=== PATIENT | female | born 1980 | race Caucasian/White ===

== ENCOUNTER 2025-06-26 23:43 | Inpatient (IN) | payer OTHER, SELFPAY ==
[2025-06-26] VITALS (7 sets, daily range): BP systolic 116–153; BP diastolic 67–86; BMI 21.1
[2025-06-26] MEDS: ZOFRAN 4 MG IV (16:20)
[2025-06-26] MEDS: BENTYL 20 MG IM ×2 (16:20→22:51)
[2025-06-26] MEDS: NSS 1000 IV ×2 (16:24→18:12)
[2025-06-26 16:37] LABS: Hematocrit 39.5 % (37.0-47.0); Hemoglobin 14.0 g/dL (12.0-16.0); Mean Corp Hgb Conc. 35.4 g/dL (33.0-37.0); Mean Corpuscular Volume 88.4 fL (81.0-99.0); Nucleated Red Blood Cells % 0 %; Platelet Count 237 10^3/uL (130-400); Red Cell Dist. Width 12.2 % (11.5-14.5)
[2025-06-26 16:54] LABS: Albumin 5.1 g/dl (3.5-5.0); Alkaline Phosphatase 40 U/L (38-126); Blood Urea Nitrogen 16 mg/dl (7-17); Calcium 10.1 mg/dl (8.4-10.2); Carbon Dioxide 12 mmol/L (22-30); Chloride 102 mmol/L (98-107); Glucose 148 mg/dl (70-99); Potassium 4.3 mmol/L (3.5-5.1); Sodium 135 mmol/L (135-145); Total Protein 8.2 g/dl (6.3-8.2); eGFR > 60.00
[2025-06-26 17:01] LABS: AST (SGOT) 42 U/L (14-36)
[2025-06-26 17:16] LABS: COVID-19 Antigen Negative (Negative)
[2025-06-26 17:18] LABS: ALT (SGPT) 56 U/L (0-35)
--- NOTE | 2025-06-26 17:21 | ED.GENMED ---
History of Present Illness
<ALYSSA Yousif - Last Filed: 06/29/25 18:33>
General
Chief Complaint: Abdominal Pain
Source: patient
Exam Limitations: none
Time Seen by Provider: 06/26/25 15:51
Nursing documentation reviewed up to this point in time: agreed with
History of Present Illness
History of Present Illness:
Patient is a 44-year-old female past medical history of IBS cyclical vomiting on medical marijuana(vapes daily) presents to the ER for evaluation of nausea and vomiting diarrhea. Patient started symptoms today. She does report however this is the
third episode she has had. Previously she was hospitalized at another institution. She does report her son had the stomach bug recently.
]
Phy Exam
<ALYSSA Yousif - Last Filed: 06/29/25 18:33>
General Physical Exam
General Presentation: no apparent distress
General age: appears stated age
General Skin: warm and dry
General Habitus: normal
General Mental: alert
General Hydration: dry mucous membranes
Cardiovascular Exam
Cardiovascular Exam: regular rate/rhythm, no murmur and normal peripheral pulses
Pulmonary Exam
Pulmonary Exam: lungs clear and no respiratory distress
Gastrointestinal Exam
Gastrointestinal Exam: soft and other (non specific tenderness no guarding )
Neurological Exam
Neurological Exam: alert and oriented x3
Musculoskeletal Exam
Musculoskeletal Exam: full ROM
Skin Exam
Skin Exam: normal color and warm/dry
Psychiatric Exam
Psychiatric Exam: normal mood/affect
Course
<ALYSSA Yousif - Last Filed: 06/29/25 18:33>
Orders/Labs/Results
Orders:
Orders
06/26/25 16:06
IV Insert/Care/Rem.- Treatment PRN
0.9% Sodium Chloride 1000 ml [Nss] 1,000 ml IV BOLUS
Ondansetron Injectable [Zofran] 4 mg IV NOW STA
06/26/25 16:08
Dicyclomine HCl [Bentyl] 20 mg IM NOW STA
06/26/25 16:26
Complete Blood Count/With Diff Urgent
Comprehensive Metabolic Panel Urgent
06/26/25 16:54
COVID-19 Antigen Urgent
Source: Nasal Swab
Influenza A+B Rapid Molecular Urgent
DONOVAN Source: Nasal Swab
Specimen Description:
06/26/25 17:28
Vital Signs- Treatment ONCE
Frequency: Once
06/26/25 17:29
Diphenhydramine [Benadryl] 25 mg IV NOW STA
06/26/25 17:30
0.9% Sodium Chloride 1000 ml [Nss] 1,000 ml IV BOLUS
06/26/25 17:32
Metoclopramide [Reglan] 10 mg .ROUTE .STK-MED ONE
06/26/25 17:34
Metoclopramide [Reglan] 10 mg IV NOW STA
06/26/25 19:44
Basic Metabolic Panel Urgent
06/26/25 21:02
Ketorolac [Toradol] 15 mg IV NOW STA
06/26/25 22:30
Dicyclomine HCl [Bentyl] 20 mg IM NOW STA
06/26/25 23:12
Admit/Transfer Patient As Directed
Co-Sign Provider:
Level of Care: Inpatient admission
Assign to:: Medical/Surgical
Physician / Group: mary
Diagnosis: gastroenteritis
Reason for Hospitalization: gastroenteritis
Expected length of stay greater than two midnights?: Yes
ELOS- Estimated Length of Stay in days: 2
I certify the patient meets the requirements for IP care: Yes
Code Status As Directed
Resuscitation Status: Full Code
PRN Pain Medication Management As Directed
May give lesser potent ordered pain med per pt: Yes
preference::
Protocol:: Medication orders for pain may be administered in a
manner that supports deferring to patient preference
when the pt is:
- Requesting an ordered lesser potent pain medication.
Least to most potent pain medications are defined
as: acetaminophen < NSAID < tramadol < opioids
(morphine, oxycodone, hydromorphone).
- Requesting a lesser dose of the same medication IF
ORDERED.
- Requesting a less intrusive route of administration
if both routes are prescribed by the provider (PO <
IV).
06/26/25 23:13
Calcium Gluconate 1 gram/100mL [Calcium Gluconate] 1 gram in 100 ml IV ONCE
06/26/25 23:14
Norovirus by PCR Urgent
DONOVAN Source: Feces/Stool
Specimen Description:
Date Specimen was Collected: 06/27/25
Time Specimen was Collected: 12:32
Stool Culture Urgent
DONOVAN Source: Feces/Stool
Specimen Description:
Date Specimen was Collected: 06/27/25
Time Specimen was Collected: 12:32
06/26/25 23:20
Sodium Bicarbonate 50 meq IV NOW STA
06/27/25 01:14
0.9% Sodium Chloride 1000 ml [Nss] 1,000 ml IV 100 mls/hr
Acetaminophen [Tylenol] 650 mg PO Q4HPRN PRN
Dicyclomine [Bentyl] 10 mg PO QIDPRN PRN
HYDROmorphone [Dilaudid] 0.5 mg IV Q4HPRN PRN
Metoclopramide [Reglan] 10 mg IV Q6HPRN PRN
Ondansetron Injectable [Zofran] 4 mg IV Q6HPRN PRN
06/27/25 01:14
Activity As Directed
Activity Level: As Tolerated
Vital Signs As Directed
Frequency: Per unit guidelines
DX Deep Vein Thrombosis Video Routine
06/27/25 08:00
Heparin 5,000 units SC Q12
06/27/25 09:14
Complete Blood Count/With Diff IN AM
Comprehensive Metabolic Panel IN AM
Abnormal Lab Results
06/26/25 06/26/25
16:26 19:44
WBC 15.9 H 10^3/uL
(4.8-10.8)
MCH 31.3 H pg
(27.0-31.0)
MPV 11.3 H fL
(7.4-10.4)
Abs Immat Gran (auto) 0.1 H 10^3/uL
(0-0.05)
Absolute Neuts (auto) 15.1 H 10^3/uL
(1.4-6.5)
Absolute Lymphs (auto) 0.3 L 10^3/uL
(1.2-3.4)
Neutrophils % 94.8 H %
(42.2-75.2)
Lymphocytes % 2.1 L %
(20.5-51.1)
Sodium 133 L mmol/L
(135-145)
Carbon Dioxide 12 L* mmol/L 18 L mmol/L
(22-30) (22-30)
Glucose 148 H mg/dl 132 H mg/dl
(70-99) (70-99)
Calcium 7.6 L D mg/dl
(8.4-10.2)
Total Bilirubin 1.5 H mg/dl
(0.2-1.3)
AST 42 H U/L
(14-36)
ALT 56 H U/L
(0-35)
Albumin 5.1 H g/dl
(3.5-5.0)
06/26/25 16:26
06/26/25 19:44
Vital Signs
Initial and Last Documented VS:
Initial Vital Signs
Temp Pulse Resp Pulse Ox
97.5 F 67 16 98
06/26/25 15:46 06/26/25 15:46 06/26/25 15:46 06/26/25 15:46
Last Documented Vital Signs
Temp Pulse Resp BP Pulse Ox
97.4 F 63 18 118/58 98
06/27/25 15:52 06/27/25 15:52 06/27/25 15:52 06/27/25 15:52 06/27/25 15:52
Reconnaissance Man consulted with Physician
Reconnaissance Man consulted with physician?: Yes
Name of Physician Consulted: Milena
<Hafsa Contreras PA-C - Last Filed: 06/27/25 02:35>
Orders/Labs/Results
Orders:
Orders
06/26/25 16:06
IV Insert/Care/Rem.- Treatment PRN
0.9% Sodium Chloride 1000 ml [Nss] 1,000 ml IV BOLUS
Ondansetron Injectable [Zofran] 4 mg IV NOW STA
06/26/25 16:08
Dicyclomine HCl [Bentyl] 20 mg IM NOW STA
06/26/25 16:26
Complete Blood Count/With Diff Urgent
Comprehensive Metabolic Panel Urgent
06/26/25 16:54
COVID-19 Antigen Urgent
Source: Nasal Swab
Influenza A+B Rapid Molecular Urgent
DONOVAN Source: Nasal Swab
Specimen Description:
06/26/25 17:28
Vital Signs- Treatment ONCE
Frequency: Once
06/26/25 17:29
Diphenhydramine [Benadryl] 25 mg IV NOW STA
06/26/25 17:30
0.9% Sodium Chloride 1000 ml [Nss] 1,000 ml IV BOLUS
06/26/25 17:32
Metoclopramide [Reglan] 10 mg .ROUTE .STK-MED ONE
06/26/25 17:34
Metoclopramide [Reglan] 10 mg IV NOW STA
06/26/25 19:44
Basic Metabolic Panel Urgent
06/26/25 21:02
Ketorolac [Toradol] 15 mg IV NOW STA
06/26/25 22:30
Dicyclomine HCl [Bentyl] 20 mg IM NOW STA
06/26/25 23:12
Admit/Transfer Patient As Directed
Co-Sign Provider:
Level of Care: Inpatient admission
Assign to:: Medical/Surgical
Physician / Group: mary
Diagnosis: gastroenteritis
Reason for Hospitalization: gastroenteritis
Expected length of stay greater than two midnights?: Yes
ELOS- Estimated Length of Stay in days: 2
I certify the patient meets the requirements for IP care: Yes
Code Status As Directed
Resuscitation Status: Full Code
PRN Pain Medication Management As Directed
May give lesser potent ordered pain med per pt: Yes
preference::
Protocol:: Medication orders for pain may be administered in a
manner that supports deferring to patient preference
when the pt is:
- Requesting an ordered lesser potent pain medication.
Least to most potent pain medications are defined
as: acetaminophen < NSAID < tramadol < opioids
(morphine, oxycodone, hydromorphone).
- Requesting a lesser dose of the same medication IF
ORDERED.
- Requesting a less intrusive route of administration
if both routes are prescribed by the provider (PO <
IV).
06/26/25 23:13
Calcium Gluconate 1 gram/100mL [Calcium Gluconate] 1 gram in 100 ml IV ONCE
06/26/25 23:14
Norovirus by PCR Urgent
DONOVAN Source: Feces/Stool
Specimen Description:
Date Specimen was Collected: 06/27/25
Time Specimen was Collected: 12:32
Stool Culture Urgent
DONOVAN Source: Feces/Stool
Specimen Description:
Date Specimen was Collected: 06/27/25
Time Specimen was Collected: 12:32
06/26/25 23:20
Sodium Bicarbonate 50 meq IV NOW STA
06/27/25 01:14
0.9% Sodium Chloride 1000 ml [Nss] 1,000 ml IV 100 mls/hr
Acetaminophen [Tylenol] 650 mg PO Q4HPRN PRN
Dicyclomine [Bentyl] 10 mg PO QIDPRN PRN
HYDROmorphone [Dilaudid] 0.5 mg IV Q4HPRN PRN
Metoclopramide [Reglan] 10 mg IV Q6HPRN PRN
Ondansetron Injectable [Zofran] 4 mg IV Q6HPRN PRN
06/27/25 01:14
Activity As Directed
Activity Level: As Tolerated
Vital Signs As Directed
Frequency: Per unit guidelines
DX Deep Vein Thrombosis Video Routine
06/27/25 08:00
Heparin 5,000 units SC Q12
06/27/25 09:14
Complete Blood Count/With Diff IN AM
Comprehensive Metabolic Panel IN AM
Abnormal Lab Results
06/26/25 06/26/25
16:26 19:44
WBC 15.9 H 10^3/uL
(4.8-10.8)
MCH 31.3 H pg
(27.0-31.0)
MPV 11.3 H fL
(7.4-10.4)
Abs Immat Gran (auto) 0.1 H 10^3/uL
(0-0.05)
Absolute Neuts (auto) 15.1 H 10^3/uL
(1.4-6.5)
Absolute Lymphs (auto) 0.3 L 10^3/uL
(1.2-3.4)
Neutrophils % 94.8 H %
(42.2-75.2)
Lymphocytes % 2.1 L %
(20.5-51.1)
Sodium 133 L mmol/L
(135-145)
Carbon Dioxide 12 L* mmol/L 18 L mmol/L
(22-30) (22-30)
Glucose 148 H mg/dl 132 H mg/dl
(70-99) (70-99)
Calcium 7.6 L D mg/dl
(8.4-10.2)
Total Bilirubin 1.5 H mg/dl
(0.2-1.3)
AST 42 H U/L
(14-36)
ALT 56 H U/L
(0-35)
Albumin 5.1 H g/dl
(3.5-5.0)
06/26/25 16:26
06/26/25 19:44
Vital Signs
Initial and Last Documented VS:
Initial Vital Signs
Temp Pulse Resp Pulse Ox
97.5 F 67 16 98
06/26/25 15:46 06/26/25 15:46 06/26/25 15:46 06/26/25 15:46
Last Documented Vital Signs
Temp Pulse Resp BP Pulse Ox
97.4 F 63 18 118/58 98
06/27/25 15:52 06/27/25 15:52 06/27/25 15:52 06/27/25 15:52 06/27/25 15:52
<Giovanny HJessie Schmid DO - Last Filed: 06/26/25 22:55>
Orders/Labs/Results
Orders:
Orders
06/26/25 16:06
IV Insert/Care/Rem.- Treatment PRN
0.9% Sodium Chloride 1000 ml [Nss] 1,000 ml IV BOLUS
Ondansetron Injectable [Zofran] 4 mg IV NOW STA
06/26/25 16:08
Dicyclomine HCl [Bentyl] 20 mg IM NOW STA
06/26/25 16:26
Complete Blood Count/With Diff Urgent
Comprehensive Metabolic Panel Urgent
06/26/25 16:54
COVID-19 Antigen Urgent
Source: Nasal Swab
Influenza A+B Rapid Molecular Urgent
DONOVAN Source: Nasal Swab
Specimen Description:
06/26/25 17:28
Vital Signs- Treatment ONCE
Frequency: Once
06/26/25 17:29
Diphenhydramine [Benadryl] 25 mg IV NOW STA
06/26/25 17:30
0.9% Sodium Chloride 1000 ml [Nss] 1,000 ml IV BOLUS
06/26/25 17:32
Metoclopramide [Reglan] 10 mg .ROUTE .STK-MED ONE
06/26/25 17:34
Metoclopramide [Reglan] 10 mg IV NOW STA
06/26/25 19:44
Basic Metabolic Panel Urgent
06/26/25 21:02
Ketorolac [Toradol] 15 mg IV NOW STA
06/26/25 22:30
Dicyclomine HCl [Bentyl] 20 mg IM NOW STA
06/26/25 23:12
Admit/Transfer Patient As Directed
Co-Sign Provider:
Level of Care: Inpatient admission
Assign to:: Medical/Surgical
Physician / Group: mary
Diagnosis: gastroenteritis
Reason for Hospitalization: gastroenteritis
Expected length of stay greater than two midnights?: Yes
ELOS- Estimated Length of Stay in days: 2
I certify the patient meets the requirements for IP care: Yes
Code Status As Directed
Resuscitation Status: Full Code
PRN Pain Medication Management As Directed
May give lesser potent ordered pain med per pt: Yes
preference::
Protocol:: Medication orders for pain may be administered in a
manner that supports deferring to patient preference
when the pt is:
- Requesting an ordered lesser potent pain medication.
Least to most potent pain medications are defined
as: acetaminophen < NSAID < tramadol < opioids
(morphine, oxycodone, hydromorphone).
- Requesting a lesser dose of the same medication IF
ORDERED.
- Requesting a less intrusive route of administration
if both routes are prescribed by the provider (PO <
IV).
06/26/25 23:13
Calcium Gluconate 1 gram/100mL [Calcium Gluconate] 1 gram in 100 ml IV ONCE
06/26/25 23:14
Norovirus by PCR Urgent
DONOVAN Source: Feces/Stool
Specimen Description:
Date Specimen was Collected: 06/27/25
Time Specimen was Collected: 12:32
Stool Culture Urgent
DONOVAN Source: Feces/Stool
Specimen Description:
Date Specimen was Collected: 06/27/25
Time Specimen was Collected: 12:32
06/26/25 23:20
Sodium Bicarbonate 50 meq IV NOW STA
06/27/25 01:14
0.9% Sodium Chloride 1000 ml [Nss] 1,000 ml IV 100 mls/hr
Acetaminophen [Tylenol] 650 mg PO Q4HPRN PRN
Dicyclomine [Bentyl] 10 mg PO QIDPRN PRN
HYDROmorphone [Dilaudid] 0.5 mg IV Q4HPRN PRN
Metoclopramide [Reglan] 10 mg IV Q6HPRN PRN
Ondansetron Injectable [Zofran] 4 mg IV Q6HPRN PRN
06/27/25 01:14
Activity As Directed
Activity Level: As Tolerated
Vital Signs As Directed
Frequency: Per unit guidelines
DX Deep Vein Thrombosis Video Routine
06/27/25 08:00
Heparin 5,000 units SC Q12
06/27/25 09:14
Complete Blood Count/With Diff IN AM
Comprehensive Metabolic Panel IN AM
Abnormal Lab Results
06/26/25 06/26/25
16: 19:44
WBC 15.9 H 10^3/uL
(4.8-10.8)
MCH 31.3 H pg
(27.0-31.0)
MPV 11.3 H fL
(7.4-10.4)
Abs Immat Gran (auto) 0.1 H 10^3/uL
(0-0.05)
Absolute Neuts (auto) 15.1 H 10^3/uL
(1.4-6.5)
Absolute Lymphs (auto) 0.3 L 10^3/uL
(1.2-3.4)
Neutrophils % 94.8 H %
(42.2-75.2)
Lymphocytes % 2.1 L %
(20.5-51.1)
Sodium 133 L mmol/L
(135-145)
Carbon Dioxide 12 L* mmol/L 18 L mmol/L
(22-30) (22-30)
Glucose 148 H mg/dl 132 H mg/dl
(70-99) (70-99)
Calcium 7.6 L D mg/dl
(8.4-10.2)
Total Bilirubin 1.5 H mg/dl
(0.2-1.3)
AST 42 H U/L
(14-36)
ALT 56 H U/L
(0-35)
Albumin 5.1 H g/dl
(3.5-5.0)
06/26/25 16:26
06/26/25 19:44
Vital Signs
Initial and Last Documented VS:
Initial Vital Signs
Temp Pulse Resp Pulse Ox
97.5 F 67 16 98
06/26/25 15:46 06/26/25 15:46 06/26/25 15:46 06/26/25 15:46
Last Documented Vital Signs
Temp Pulse Resp BP Pulse Ox
97.4 F 63 18 118/58 98
06/27/25 15:52 06/27/25 15:52 06/27/25 15:52 06/27/25 15:52 06/27/25 15:52
<ALYSSA Yousif - Last Filed: 06/29/25 18:33>
MDM/Problems Addressed
Differential Diagnosis Includes:
Not limited to viral syndrome, COVID, influenza, cyclical vomiting syndrome, marijuana induced hyperemesis, dehydration, electrolyte
MDM/Problems Addressed:
Symptoms are likely cyclical vomiting syndrome. Patient has had this several times in the past. She does admit to smoking marijuana daily for anxiety and does have a history of IBS. Patient presents very anxious hyperventilating and dehydrated on
exam. Patient was ordered Zofran and fluids feeling better but still feels nauseous. Did have an episode of diarrhea here. Family member recently had stomach bug. afebrile. no covid, no influenza,
We did discuss the possibility of hyperemesis cannabinoid. White count minimally elevated. Bicarb initially low at 12 however patient was hyperventilating on initial arrival. LFTs were minimally elevated.
Will plan to give a second liter fluids along with Reglan and Benadryl and plan to discharge home if feeling better. case reviewed with ED physician.
1809:Care of pt transfered to [facility].
Chronic conditions affecting care:
Daily marijuana use
<ALYSSA Yousif - Last Filed: 06/29/25 18:33>
*Pulse Oximetry
SaO2: 98
Oxygen Mode of Delivery: Room air
Patient hypoxic: no
<Hafsa Contreras PA-C - Last Filed: 06/27/25 02:35>
*Critical Care Note
Total Time (30-74mins, 75-104mins- exclusive of procedures): Not Applicable
<Hafsa Contreras PA-C - Last Filed: 06/27/25 02:35>
Update Note
Update Note:
Update: Assumed care of patient. Patient has been reassessed multiple times at bedside. Abdomen remains soft with only very mild diffuse tenderness. Labs reviewed which show a leukocytosis which I suspect to be reactive from vomiting as well as
significant acidosis likely secondary to GI losses. A repeat BMP was obtained following 2 L IV fluids which show improvement in acidosis however now with hypocalcemia. Overall impression is likely viral gastroenteritis given nausea, vomiting, and
diarrhea along with recent sick contacts. Unfortunately�she has had persistent nausea/vomiting as well as abdominal cramping despite multiple rounds of IV antiemetic and pain medications in the emergency department. She is unable to tolerate oral
intake and therefore will require admission to the hospital for symptomatic management. I have a low suspicion for acute intra-abdominal infectious process given patient is afebrile with benign exam and do not feel CT imaging indicated at this
time. Patient accepted to the hospitalist service in stable condition for continued care
ED Attending Note
<ALYSSA Yousif - Last Filed: 06/29/25 18:33>
-
Portions of this chart may have been created with voice recognition software.� Occasional wrong word or��sound alike� substitutions may have occurred due to the inherent limitations of voice recognition software.
<Giovanny Schmid DO - Last Filed: 06/26/25 22:55>
ED Attending Note
Patient seen and examined by attending physician: Yes
I performed the substantive portion of visit, reviewed & personally made and approve the management plan that is documented in note by myself or EDGARD.: Yes
ED Attending Note:
Patient presents with nausea, vomiting and diarrhea. Patient states in the past when she has developed nausea vomiting it becomes intractable and she cannot stop the vomiting. Patient has received IV fluids, several doses of antiemetics.
Patient's vomiting has ceased but she still feels quite nauseous. She attempted to take some p.o. fluids a couple hours ago and vomited at that time. She just drank some water now and has significant abdominal cramping. She is nauseous but has
not vomited. Patient is extremely anxious about going home because she does not feel like she is in a position to tolerate oral intake.
General: Awake, Alert, Oriented X3. Appears uncomfortable from nausea
Vitals: unremarkable
Head: Atraumatic
Eyes: Pupils equal, EOMI
Throat: Airway intact, no exudates, dry mucosa
Neck: Trachea midline
Lungs: Clear and equal b/l
Heart: Regular rate, no murmurs
Abd: Soft, upper abdominal tenderness to palpation, No pulsatile mass
Neuro: Nonfocal
Skin: Warm, dry, no rash
Extremities: pulses equal b/l, no edema
Patient's labs show that she had a fairly significant drop in her bicarb. Repeat labs after hydration shows her bicarb has improved but is still low at 18. Calcium is now low at 7.6 likely delusional. Was the hospitalist to hospitalize the
patient for further IV fluids, antiemetics and supportive care.
Discharge Plan
Departure
Patient Disposition: Admit
Date of Disposition: 06/26/25
Time of Disposition: 22:50
Presentation/result/management discussed w/ accepting MD/DO: Hospitalist
Condition: Fair
Covid-19: Not Applicable
Discharge Problem:
Nausea and vomiting, Diarrhea
Interventions
Interventions:
*General Assessment Last Done: 06/26/25 15:46
*Neglect/Abuse Screening Last Done: 06/26/25 15:46
*ED COVID-19 Vaccine History Last Done: 06/27/25 01:16
*ED Influenza Vaccine History Last Done: 06/26/25 15:46
[facility] Risk Assessment Tool Last Done: 06/26/25 18:45
*Risk Screen - Suicide (C-SSRS) Last Done: 06/26/25 18:56
*Nursing Disposition Last Done: 06/27/25 01:09
SQ-Jeicby-Iynhujnxss Assessment Last Done: 06/26/25 19:49
Discharge Date and Time
Discharge Date/Time: 06/27/25 01:09
[2025-06-26] MEDS: REGLAN 10 MG IV (17:36)
[2025-06-26] MEDS: BENADRYL 25 MG IV (17:37)
[2025-06-26 20:14] LABS: Blood Urea Nitrogen 13 mg/dl (7-17); Calcium 7.6 mg/dl (8.4-10.2); Carbon Dioxide 18 mmol/L (22-30); Chloride 106 mmol/L (98-107); Estimated Creatinine Clearance 101 ml/min; Glucose 132 mg/dl (70-99); Potassium 3.9 mmol/L (3.5-5.1); Sodium 133 mmol/L (135-145); eGFR > 60.00
[2025-06-26] MEDS: TORADOL 15 MG IV (21:11)
--- NOTE | 2025-06-26 23:15 | HPS.HSE ---
Addendum entered and electronically signed by Sherita Reich MD 06/26/25 23:20:
Gave bicarb push.
Original Note:
Family Physician
-
Family Physician: Elsa Simon MD
Chief Complaint
-
vomiting, diarrhea
History of Present Illness
44-year-old female past medical history of IBS, cyclical vomiting syndrome, gastritis, anxiety/depression/PTSD, marijuana use, presenting for nausea vomiting and nonbloody watery diarrhea starting today. Her son had similar symptoms 2 days ago.
Denies any recent travel. Has chills without fever. Has abdominal cramping.
She rarely drinks alcohol. Denies smoking or other drugs.
Medical History
Past Medical History
Past Medical History: Reports Other (IBS, cyclical vomiting syndrome, gastritis, anxiety/depression/PTSD, marijuana use)
Past Surgical History: Reports Other (episiotomy)
Social History
Tobacco: Non-smoker
Alcohol: Occasional
Drug: Marijuana
Family History
Family History: Not pertinent
Allergies / Home Medications
Allergies reflects when Allergies were last updated in [facility].
Home Medications with original date entered in [facility]
Allergy/Medication List:
Allergies
Allergy/AdvReac Type Severity Reaction Status Date / Time
ciprofloxacin (From Cipro) Allergy Unknown Verified 06/26/25 15:51
Sulfa (Sulfonamide Allergy Unknown Verified 06/26/25 15:51
Antibiotics)
Home Medications
Medical Marijuana 1 puff inhalation HS Pain/Anxiety 06/26/25
biotin 10,000 mcg chewable tablet (Hair, Skin and Nails (biotin)) 1 mcg PO DAILY 06/26/25
calcium carbonate (Tums) 400 mg PO DAILYPRN PRN heartburn 06/26/25
cholecalciferol (vitamin D3) 25 mcg (1,000 unit) tablet 25 mcg PO DAILY 06/26/25
fluticasone propionate 50 mcg/actuation nasal spray,suspension 2 spray intranasal DAILY 06/26/25
loperamide 2 mg tablet 2 mg PO DAILYPRN PRN diarrhea 06/26/25
norgestimate 0.25 mg-ethinyl estradiol 0.035 mg tablet (Estarylla) 1 tab PO DAILY 06/26/25
ondansetron 4 mg disintegrating tablet 4 mg PO Q8H PRN nausea and vomiting #10 tabs 06/26/25
Review of Systems
-
History Source: Patient
A 12 point ROS was completed and negative except as noted: Yes
Constitutional: Reports No Symptoms
EENT: Reports No Symptoms
Respiratory: Reports No Symptoms
Cardiac: Reports No Symptoms
Abdomen/GI: Reports See HPI
: Reports No Symptoms
Musculoskeletal: Reports No Symptoms
Skin: Reports No Symptoms
Neurological: Reports No Symptoms
Endocrine: Reports No Symptoms
Hematologic/Lymphatic: Reports No Symptoms
Psych: Reports No Symptoms
Physical Exam
Vital Signs
Vital Signs
Temp Pulse Resp BP Pulse Ox
99.1 F 66 16 151/81 99
06/26/25 20:29 06/26/25 23:00 06/26/25 21:00 06/26/25 23:00 06/26/25 23:00
Physical Exam
General: Well Developed, Well Nourished and No Apparent Distress
HEENT: NormoCephalic, Moist mucous membranes and Atraumatic
Respiratory: Clear
Cardiac: S1/S2 and Regular Rhythm; No Murmur or Rub
GI: Soft, Non Distended, Normal Bowel Sounds and Tender (diffusely ); No Organomegaly
Rectal: Deferred by Provider
Musculoskeletal: No Clubbing, No Cyanosis and No Edema
Skin: No Rash
Neuro: Nonfocal/grossly intact
Laboratory Results
-
06/26/25 16:26
06/26/25 19:44
Laboratory Results
Total Bilirubin 1.5 mg/dl (0.2-1.3) H 06/26/25 16:26
AST 42 U/L (14-36) H 06/26/25 16:26
ALT 56 U/L (0-35) H 06/26/25 16:26
Alkaline Phosphatase 40 U/L (38-126) 06/26/25 16:26
Data Reviewed
-
Lab Data: Labs Reviewed by me
Old Records: Reviewed
Impression/Plan
-
IMPRESSION:
PLAN:
# Acute viral gastroenteritis
-COVID and flu negative
- N.p.o.
- IV fluids
- Zofran, Reglan, dicyclomine, Dilaudid as needed
- Check stool culture and norovirus
# Non-anion gap metabolic acidosis secondary to diarrhea
- Continue IV fluids
# Hypocalcemia secondary to metabolic acidosis/GI losses
- Replete calcium
History of IBS
History of cyclical vomiting secondary to marijuana use
History of gastritis
Anxiety/depression/PTSD
Full code
DVT prophylaxis�heparin
N.p.o.
--- NOTE | 2025-06-26 23:28 | EDRN ---
Called pharmacy for calcium gluconate infusion
[2025-06-26] MEDS: SODIUM BICARBONATE 50 MEQ IV (23:44)
[2025-06-26] MEDS: CALCIUM GLUCONATE 100 IV (23:48)
--- NOTE | 2025-06-27 00:37 | EDRN ---
Calcium gluconate finished infusing
--- NOTE | 2025-06-27 01:00 | PTCARENOTE ---
Pt. admitted from E.D., AAO x 3, vs stable, pt. ambulated from stretcher to bed, call harvey within reach.
[2025-06-27 01:39] VITALS: BP 160/87; BMI 20.3
[2025-06-27] MEDS: NSS 1000 IV (01:54)
[2025-06-27] MEDS: ZOFRAN 4 MG IV (01:57)
[2025-06-27] MEDS: DILAUDID 0.5 MG IV (01:58)
[2025-06-27 08:37] VITALS: BP 131/75
[2025-06-27 09:30] LABS: Hematocrit 34.3 % (37.0-47.0); Hemoglobin 12.2 g/dL (12.0-16.0); Mean Corp Hgb Conc. 35.6 g/dL (33.0-37.0); Mean Corpuscular Volume 89.3 fL (81.0-99.0); Nucleated Red Blood Cells % 0 %; Platelet Count 211 10^3/uL (130-400); Red Cell Dist. Width 12.7 % (11.5-14.5)
--- NOTE | 2025-06-27 09:32 | W.PN.HOSP.TC ---
Addendum entered and electronically signed by Wilner Nixon MD 06/27/25 13:52:
Follow up LFTs from today shows normalization of her LFTs - suspect sec to primary process of gastroenteritis .
Original Note:
Today's Communication/Plan
-
Start on full liquid diet and advance
DC planning
Assessment / Plan
Assessment / Plan
Acute self-limiting nausea vomiting and diarrhea.
Resolved symptoms. Benign belly.
Suspect acute gastroenteritis. Symptoms present in family. Suspect possibly viral gastroenteritis but cannot rule out toxin based.
Start on full liquid diet and if she tolerates advance to solid diet later today and if she tolerates will DC patient home.
Non-anion gap metabolic acidosis suspected secondary to GI losses
Improved bicarb last night. Awaiting BMP from today.
Leukocytosis again suspect secondary to gastroenteritis. Improving with supportive care.
Abnormal liver function test with mildly elevated AST ALT and bilirubin.
Denies prior history of liver disease. Abdomen benign. No hepatomegaly. Repeat labs from today pending.
Fractionate bilirubin for now.
Follow with resolution of gastroenteritis and if persistently elevated then we would investigate further.
Likely DC later today.
Anticipated Discharge: Today
Subjective/Interval History
-
Date of Service: June 27, 2025
Patient with tenderness only GI symptoms.
Symptoms started yesterday morning initially with nausea and multiple episodes of emesis followed by multiple episodes of diarrhea. Send had the symptoms the night before. Daughter also had episodes of emesis.
Vomiting resolved yesterday for her. No bowel movement since last night. She is feeling hungry. No fever or chills today.
Objective Data
-
Labs:
Laboratory Results
06/27/25
09:14
WBC 11.7 H
Hgb 12.2
Hct 34.3 L
Plt Count 211
Sodium Pending
Potassium Pending
Chloride Pending
Carbon Dioxide Pending
BUN Pending
Creatinine Pending
Glucose Pending
Calcium Pending
Total Bilirubin Pending
AST Pending
ALT Pending
Alkaline Phosphatase Pending
Vital Signs:
Vital Signs
Temp Pulse Resp BP Pulse Ox
99.2 F 57 14 131/75 98
06/27/25 08:37 06/27/25 08:37 06/27/25 08:37 06/27/25 08:37 06/27/25 08:37
I&O
06/26/25 06/27/25 06/28/25
06:59 06:59 06:59
Intake Total 400 / 400
Balance 400 / 400
Physical Exam
-
General: Comfortable
Respiratory: Non Labored Respirations; Negative Accessory Resp Muscle Use
Cardiac: Regular Rhythm and S1/S2; Negative Tachycardic
GI: Soft, Nontender, Nondistended and Normal Bowel Sounds
Neuro: AO x 3
Psych: Calm; Negative Confused
Data Reviewed
-
Labs: Labs Reviewed by me
[2025-06-27 10:05] LABS: ALT (SGPT) 30 U/L (0-35); AST (SGOT) 31 U/L (14-36); Albumin 3.7 g/dl (3.5-5.0); Alkaline Phosphatase 30 U/L (38-126); Carbon Dioxide 24 mmol/L (22-30); Estimated Creatinine Clearance 100 ml/min; Glucose 102 mg/dl (70-99); Total Protein 6.4 g/dl (6.3-8.2); eGFR > 60.00
[2025-06-27 10:12] LABS: Blood Urea Nitrogen 12 mg/dl (7-17); Calcium 8.5 mg/dl (8.4-10.2); Chloride 102 mmol/L (98-107); Potassium 4.0 mmol/L (3.5-5.1); Sodium 134 mmol/L (135-145)
--- NOTE | 2025-06-27 12:56 | CM ---
Patient seen bedside, initial assessment completed. Poss discharge later today if tolerates dinner.
44-year-old female past medical history of IBS, cyclical vomiting syndrome, gastritis, anxiety/depression/PTSD, marijuana use, presenting for nausea vomiting and nonbloody watery diarrhea.
Patient resides w/ spouse and their 2 children (12 and 10 yr old) in [facility], [address] into the home. Patient is independent in all areas, no DME. OP PT hx for back but none recently.
Address, point of contact and insurance verified
PCP: Elsa Simon
Pharmacy: [facility]
Plan: Home, no needs
[2025-06-27] MEDS: NSS IV (13:18)
--- NOTE | 2025-06-27 13:52 | W.DCSUMMARY ---
Discharge Summary
Discharge Data
Date of Admission: 06/26/25
Date of Discharge: 06/27/25
-
Pending Results: No
Hospital Course
Primary diagnosis:
Acute gastroenteritis
Mild transient abnormal LFTs
Non anion gap metabolic acidosis
Leukocytosis
Secondary diagnosis:
Medical marijuana use
Hospital course:
42-year-old with prior history of IBS, cyclical vomiting syndrome, gastritis presents with acute onset of nausea vomiting and diarrhea.
She was in her usual state of health. Her son got sick with GI symptoms and the next day she started to have nausea and multiple episodes of emesis. She then started to have multiple episodes of loose stools. No fever or chills. Nothing was
acute and self-limiting. Clinical case was suspicious for acute gastroenteritis. Today she was fine without any GI symptoms. On presentation she had a severe anion gap metabolic acidosis from GI losses. She got IV bicarbonate. She also had
leukocytosis which improved spontaneously without treatments. She also had mild transaminitis with bilirubin of 1.5,AST 42 and ALT 56 which all resolved with resolution of GI symptoms and normalization of acidosis .Suspect secondary to acute
gastroenteritis . She was tolerating a low residue diet prior to discharge.
Portions of this chart may have been created with voice recognition software. Occasional wrong word or 'sound alike' substitutions may have occurred due to the inherent limitations of voice recognition software.
Discharge Plan
-
Patient Disposition: Home (Routine Discharge)
Discharge Diagnosis/Procedures: Acute gastroenteritis
Diet: Low Residue
Additional Diets: Low residue for a week
Activity: As tolerated
Driving Restrictions: As prior to admission
Referrals:
Elsa Simon MD [Family Provider, Family Practice] - in less than 1 week
Prescriptions:
Continued
norgestimate-ethinyl estradiol [Estarylla] 0.25-0.035 mg tablet
1 tab PO DAILY
loperamide 2 mg Tablet
2 mg PO DAILYPRN PRN (Reason: diarrhea)
calcium carbonate [Tums] 200 mg calcium (500 mg) Tablet,Chewable
400 mg PO DAILYPRN PRN (Reason: heartburn)
fluticasone propionate 50 mcg/actuation [place],Suspension
2 spray INTRANASAL DAILY
cholecalciferol (vitamin D3) 25 mcg (1,000 unit) Tablet
25 mcg PO DAILY
Hair, Skin and Nails (biotin) 10,000 mcg Tablet,Chewable
1 mcg PO DAILY
Medical Marijuana
1 puff inhalation HS
Discharge Orders:
Discharge Patient (As Directed); Ordered 06/27/25
Ordered By: Wilner Nixon
Discharge Date and Time
Print Language: KITTITIAN
[2025-06-27 15:52] VITALS: BP 118/58
== END 2025-06-27 16:57 | disposition home or self-care (01) | DRG 392 ==
LOC: 4 WEST ACU 23:43
PROVIDERS: Nurse Practitioner; Physician Assistant; ADMITTING PHYSICIAN Hospitalist; ATTENDING PHYSICIAN Internal Medicine; EMERGENCY PHYSICIAN Emergency Medicine; FAMILY PHYSICIAN Family Medicine
DX: A08.4 Viral intestinal infection, unspecified (principal); E87.20 Acidosis, unspecified; E83.51 Hypocalcemia; K58.9 Irritable bowel syndrome, unspecified; K29.70 Gastritis, unspecified, without bleeding; F41.9 Anxiety disorder, unspecified; F32.A Depression, unspecified; F43.10 Post-traumatic stress disorder, unspecified; K58.8 Other irritable bowel syndrome; R79.89 Other specified abnormal findings of blood chemistry; Z88.1 Allergy status to other antibiotic agents; Z88.2 Allergy status to sulfonamides; Z87.891 Personal history of nicotine dependence; Z11.52 Encounter for screening for COVID-19
CPT/HCPCS: 80048; 80053; 82248; 85025; 87045; 87046; 87427; 87502; 87798; 87811; 96361; 96372; 96374; 96375; 99284